=== PATIENT | female | born 1975 | race Caucasian/White ===

== ENCOUNTER → 2021-11-24 | Outpatient (CLI) | payer BC ==
[~2021-11-24] MED LIST: FERROUS SULFAT325 MG PO
[2021-11-24 11:01] LABS: HEMOGLOBIN 10.6 gm/dl (12.3-15.3); RED BLOOD COUNT 4.72 M/UL (4.00-5.10); WHITE BLOOD COUNT 6.7 K/UL (4.5-11.0)
== END ==
LOC: OPSV2 09:00
PROVIDERS: Obstetrics & Gynecology
DX: Z01.812 Encounter for preprocedural laboratory examination (principal); N81.4 Uterovaginal prolapse, unspecified
CPT/HCPCS: 81001; 85025

== ENCOUNTER 2021-11-30 05:33 | Inpatient (IN) | payer BC ==
[~2021-11-30] VITALS: Ht 162.6 cm; Wt 59.0 kg
[2021-11-30] MEDS ORDERED: IBUPROFEN600 MG PO (10:05)
[2021-11-30] MEDS ORDERED: COLACE 100MG C100 MG PO (10:05)
[2021-11-30] MEDS ORDERED: PERCOCET 5-3251 EACH PO (10:05)
== END 2021-12-01 14:25 | disposition home or self-care (01) | DRG 743 ==
LOC: OR 05:33 → MED SURG 4 09:30 → OR 13:53 → MED SURG 4 12-01 14:25
PROVIDERS: ADMIT Obstetrics & Gynecology
PROC: 0UT74ZZ Resection of Bilateral Fallopian Tubes, Percutaneous Endoscopic Approach (ICD-10-PCS; 2021-11-30)
PROC: 0UT24ZZ Resection of Bilateral Ovaries, Percutaneous Endoscopic Approach (ICD-10-PCS; 2021-11-30)
PROC: 0WQN4ZZ Repair Female Perineum, Percutaneous Endoscopic Approach (ICD-10-PCS; 2021-11-30)
PROC: 0UT94ZZ Resection of Uterus, Percutaneous Endoscopic Approach (ICD-10-PCS; principal; 2021-11-30 07:30)
DX: N94.6 Dysmenorrhea, unspecified (principal); D64.9 Anemia, unspecified; N81.2 Incomplete uterovaginal prolapse; N92.0 Excessive and frequent menstruation with regular cycle; Z82.3 Family history of stroke; Z82.49 Family history of ischemic heart disease and other diseases of the circulatory system; Z80.3 Family history of malignant neoplasm of breast; Z80.1 Family history of malignant neoplasm of trachea, bronchus and lung; Z88.8 Allergy status to other drugs, medicaments and biological substances
CPT/HCPCS: 36415; 74018; 84703; 85014; 85018; J0690; J1100; J1170; J1885; J2001; J2250; J2270; J2405; J2550; J2704; J2795; J3010